=== PATIENT | male | born 1990 | race Caucasian/White ===

== ENCOUNTER 2016-06-20 12:45 | Inpatient (IN) | payer BC, OTHER ==
[2016-06-20 16:31] VITALS: BMI 30.7
--- NOTE | 2016-06-20 17:53 | HP ---
COWS - Scale Resting Pulse: 0= [place] 80 or Below Sweatin=Flushed/Facial Moisture Restless Observation: 1= Difficult to Sit Still Pupil Size: 0= Normal to Room Light Bone or Joint Aches: 2= Severe Diffuse Aches Runny Nose/ Eye Tearin= Runny Nose/Eyes GI Upset > 30mins: 2= Nausea/Diarrhea Tremor Observation: 2= Slight Tremor Visible Yawning Observation: 1= 1-2x During Session Anxiety or Irritability: 2=Irritable/Anxious Goose Flesh Skin: 3=Piloerection COWS Score: 17 Admission ROS S - HPI Chief Complaint: "I am here to Detox from the Opiates and to get better." Pt. is here to Detox from Oxycodone. Allergies/Adverse Reactions: Allergies Allergy/AdvReac Type Severity Reaction Status Date / Time No Known Allergies Allergy Verified 06/20/16 17:11 History of Present Illness: Pt. is a 26 YO male here to Detox from Oxycodone. This pt.'s first Detox admission at [facility]. Pt. also smokes Marijuana on a daily basis. Exam Limitations: No Limitations - Ebola screening Have you traveled outside of the country in the last 21 days: No Have you had contact with anyone from an Ebola affected area: No Have you been sick,other than usual withdrawal symptoms: No Do you have a fever: No - Review of Systems Constitutional: Chills, Diaphoresis, Fever, Loss of Appetite, Malaise, Night Sweats, Changes in sleep EENT: reports: Nose Congestion, Sinus Pressure Respiratory: reports: No Symptoms reported Cardiac: reports: Lightheadedness, Palpitations GI: reports: Constipated, Nausea, Poor Appetite, Vomiting, Abdominal cramping : reports: Other (Difficulty in initiaiting stream over last 2 days.) Musculoskeletal: reports: Back Pain Integumentary: reports: No Symptoms Reported Neuro: reports: Headache, Tremors Endocrine: reports: No Symptoms Reported Hematology: reports: No Symptoms Reported Psychiatric: reports: Judgement Intact, Mood/Affect Appropiate, Orientated x3, Anxious, Depressed Other Systems: Reviewed and Negative Patient History - Patient Medical History Hx Anemia: No Hx Asthma: No Hx Chronic Obstructive Pulmonary Disease (COPD): No Hx Cancer: No Hx Cardiac Disorders: No Hx Congestive Heart Failure: No Hx Hypertension: No Hx Hypercholesterolemia: No Hx Pacemaker: No HX Cerebrovascular Accident: No Hx Seizures: No Hx Dementia: No Hx Diabetes: No Hx Gastrointestinal Disorders: No Hx Liver Disease: No Hx Genitourinary Disorders: No Hx Sexually Transmitted Disorders: No Hx Renal Disease (ESRD): No Hx Thyroid Disease: No Hx Human Immunodeficiency Virus (HIV): No (Last Tested in 2011: NEGATIVE.) Hx Hepatitis C: No (Last Tested in 2012: NEGATIVE.) Hx Depression: Yes (Medication in past; none current.) Hx Suicide Attempt: No (PATIENT DENIES CURRENT SI / HI.) Hx Bipolar Disorder: No Hx Schizophrenia: No Other Medical History: 2 Herniated Discs in Lumbar Area: 2014. - Patient Surgical History Past Surgical History: Yes Hx Neurologic Surgery: No Hx Cataract Extraction: No Hx Cardiac Surgery: No Hx Lung Surgery: No Hx Breast Surgery: No Hx Breast Biopsy: No Hx Abdominal Surgery: No Hx Appendectomy: No Hx Cholecystectomy: No Hx Genitourinary Surgery: No Hx Section: No Hx Orthopedic Surgery: Yes (2007: Repair of torn Meniscus on Right Knee.) Anesthesia Reaction: No - PPD History Previous Implant?: Yes Documented Results: Negative w/o proof Implanted On Prior [facility] Admission?: No PPD to be Administered?: Yes - Reproductive History Patient is a Female of Child Bearing Age (11 -55 yrs old): No (PATIENT IS MALE.) - Smoking Cessation Smoking history: Current every day smoker Have you smoked in the past 12 months: Yes Aproximately how many cigarettes per day: 10 Cigars Per Day: 0 Hx Chewing Tobacco Use: No Initiated information on smoking cessation: Yes 'Breaking Loose' booklet given: 06/20/16 (GIVEN ON UNIT.) - Substance & Tx. History Hx Alcohol Use: No Hx Substance Use: Yes Substance Use Type: Marijuana, Opiates Hx Substance Use Treatment: No - Substances Abused Oxycontin Route: Oral Frequency: Daily Amount used: 400 mg Age of first use: 23 Date of Last Use: 06/19/16 Marijuana/Hashish Route: Smoking Frequency: 3-6 times per week Amount used: 1 Joint. Age of first use: 24 Date of Last Use: 06/19/16 Family Disease History - Family Disease History Family Disease History: [place]: Father (Lung, Brain, .), Other: Grandparent (CVA.), Mother (Depression, Bi-Polar disorder.) Admission Physical Exam [facility] - Vital Signs Vital Signs: Vital Signs - 24 hr 06/20/16 16:27 Temperature 98.9 F Pulse Rate 78 Respiratory 18 Rate Blood Pressure 122/69 - Physical General Appearance: Yes: Nourished, Appropriately Dressed, Moderate Distress, Tremorous, Anxious HEENTM: Yes: Hearing grossly Normal, Normocephalic, Normal Voice, [place], Pharynx Normal Respiratory: Yes: Chest Non-Tender, Lungs Clear, No Respiratory Distress Neck: Yes: No masses,lesions,Nodules, Supple, Trachea in good position Breast: Yes: Breast Exam Deferred Cardiology: Yes: Regular Rhythm, Regular Rate, S1, S2 Abdominal: Yes: Normal Bowel Sounds, Soft, Protuberent Genitourinary: Yes: Within Normal Limits Back: Yes: Decreased Range of Motion, Vertebral Tenderness Musculoskeletal: Yes: Gait Steady, Back pain Extremities: Yes: Normal Range of Motion, Non-Tender, Tremors Neurological: Yes: Fully Oriented, Alert, Normal Mood/Affect, Normal Response Integumentary: Yes: Normal Color, Dry, Warm Lymphatic: Yes: Within Normal Limits - Diagnostic (1) Opioid dependence with withdrawal Current Visit: Yes Status: Acute (2) Cannabis dependence, uncomplicated Current Visit: Yes Status: Acute (3) Herniated disc Current Visit: Yes Status: Chronic Qualifiers: Spinal region: lumbar Qualified Code(s): M51.26 - Other intervertebral disc displacement, lumbar region (4) Lower back injury Current Visit: Yes Status: Chronic Qualifiers: Encounter type: sequela Qualified Code(s): S39.92XS - Unspecified injury of lower back, sequela (5) Nicotine dependence Current Visit: Yes Status: Chronic Qualifiers: Nicotine product type: cigarettes Substance use status: uncomplicated Qualified Code(s): F17.210 - Nicotine dependence, cigarettes, uncomplicated Cleared for Admission [facility] - Detox or Rehab [facility] Level of Care: Medically Managed Detox Regimen/Protocol: Methadone [facility] Breath Alcohol Content Breath Alcohol Content: 0 Urine Drug Screen - Results Drug Screen Negative: No Urine Drug Screen Results: THC-Marijuana, OPI-Opiates, BZO-Benzodiazepines, OXY- Oxycodone
[2016-06-20] MEDS ORDERED: IBUPROFEN 400 MG TABLET (FP) PO PRN (18:35)
[2016-06-20] MEDS ORDERED: MAG HYDROX/AL HYDROX/SIMETH 30 ML UNIT-DOSE CUP PO PRN (18:35)
[2016-06-20] MEDS ORDERED: diphenhydrAMINE HCL 50 MG CAPSULE PO PRN (18:35)
[2016-06-20] MEDS ORDERED: MENTHOL/PHENOL 1 EACH UD MM PRN (18:35)
[2016-06-20] MEDS ORDERED: MAGNESIUM HYDROX 2400MG/30ML ORAL SUSPENSION 30 ML CUP PO PRN (18:35)
[2016-06-20] MEDS ORDERED: P-EPHED 60MG/TRIPROLIDI 2.5MG TABLET PO PRN (18:35)
[2016-06-20] MEDS ORDERED: LOPERAMIDE HCL 2 MG CAPSULE PO PRN (18:35)
[2016-06-20] MEDS ORDERED: guaiFENesin/D-METHORPHAN HB 10 ML UNIT-DOSE CUPS PO PRN (18:35)
[2016-06-20] MEDS ORDERED: MAGNESIUM CITRATE 300 ML BOTTLE PO PRN (18:35)
[2016-06-20] MEDS ORDERED: METHADONE HCL 10 MG TABLET (FOR DETOX USE ONLY) PO ONE ×2 (19:00→23:00)
[2016-06-20] MEDS: NICOTINE 21 MG/24 HOURS TOPICAL PATCH TD SCH (19:32)
[2016-06-20] MEDS: diazePAM 5 MG TABLET PO PRN ×2 (19:37→23:41)
[2016-06-20] MEDS: ACETAMINOPHEN 325 MG TABLET (FP) PO PRN (21:41)
[2016-06-20] MEDS: THIAMINE HCL 100 MG TABLET (FP) PO SCH (22:01)
[2016-06-21] MEDS: diazePAM 5 MG TABLET PO PRN ×5 (05:51→22:47)
--- NOTE | 2016-06-21 09:46 | CONSULT ---
[facility] Psychiatric Consult - Data Date of interview: 06/21/16 Admission source: [facility] Identifying data: First admission to [facility] for this 26 y/o male seeking detox treatment on for opioid and marijuana dependence.Patient is single without children,domiciled and employed. Substance Abuse History: - Smoking Cessation. Smoking history: Current every day smoker. Have you smoked in the past 12 months: Yes. Aproximately how many cigarettes per day: 10. Cigars Per Day: 0. Hx Chewing Tobacco Use: No. Initiated information on smoking cessation: Yes. 'Breaking Loose' booklet given : 06/20/16 (GIVEN ON UNIT.). - Substance & Tx. History. Hx Alcohol Use: No. Hx Substance Use: Yes. Substance Use Type: Marijuana, Opiates. Hx Substance Use Treatment: No. - Substances Abused. Oxycontin. Route: Oral. Frequency : Daily. Amount used: 400 mg. Age of first use: 23. Date of Last Use: . Marijuana/Hashish. Route: Smoking. Frequency: 3-6 times per week. Amount used: 1 Joint. Age of first use: 24. Date of Last Use: 06/19/16. Patient confirms this pattern of abuse during my interview. Medical History: Remarkable for a history of orthosurgery for torn meniscus ( right knee) an,low back pain and herniated disk (lumbar spine). Psychiatric History: No reported history of psychiatric hospitalizations.Patient indicates that he had a brief contact with a private psychiatrist,in 2007,to address depressed mood/anxiety experienced after the of his grand mother.Cymbalta was prescribed but the patient stopped taking the medication after three days.No further contact with Psychiatry since 2007.Mr Murphy denies history of suicide attempts.Chronic insomnia is a recurrent complaint. Physical/Sexual Abuse/Trauma History: Patient denies history of sexual abuse.Patient reports that the of his father has caused him a great deal of distress. Additional Comment: Urine Drug Screen Results: THC-Marijuana, OPI-Opiates, BZO- Benzodiazepines, OXY-Oxycodone.Noted. Mental Status Exam - Mental Status Exam Alert and Oriented to: Time, Place, Person Cognitive Function: Good Patient Appearance: Disheveled Mood: Nervous, Anxious, Apprehensive Affect: Mood Congruent Patient Behavior: Fatigued, Cooperative Speech Pattern: Clear Voice Loudness: Normal Thought Process: Goal Oriented Thought Disorder: Not Present Hallucinations: Denies Suicidal Ideation: Denies Homicidal Ideation: Denies Insight/Judgement: Fair Muscle strength/Tone: Normal Gait/Station: Normal Psychiatric Findings - Problem List ([place] 1, 2,3) (1) Cannabis dependence, uncomplicated Current Visit: Yes Status: Acute (2) Opioid dependence with withdrawal Current Visit: Yes Status: Acute (3) Nicotine dependence Current Visit: Yes Status: Acute Qualifiers: Nicotine product type: cigarettes Substance use status: uncomplicated Qualified Code(s): F17.210 - Nicotine dependence, cigarettes, uncomplicated (4) Substance induced mood disorder Current Visit: Yes Status: Acute (5) Herniated disc Current Visit: Yes Status: Chronic Qualifiers: Spinal region: lumbar Qualified Code(s): M51.26 - Other intervertebral disc displacement, lumbar region (6) Lower back injury Current Visit: Yes Status: Chronic Qualifiers: Encounter type: sequela Qualified Code(s): S39.92XS - Unspecified injury of lower back, sequela (7) Low back pain Current Visit: Yes Status: Chronic (8) Paronychia Current Visit: Yes Status: Chronic (9) Insomnia Current Visit: Yes Status: Chronic - Initial Treatment Plan Initial Treatment Plan: Psychoeducation.Detoxification.Zolpidem 10 mg po hs prn.Patient is made aware of the risk of parasomnias.Observation.
[2016-06-21] MEDS ORDERED: METHADONE HCL 10 MG TABLET (FOR DETOX USE ONLY) PO ONE (10:00)
[2016-06-21 10:05] LABS: MCH 28.6 pg (25.7-33.7); MCHC 32.9 g/dl (32.0-35.9); MEAN CELL VOLUME 86.9 fl (80-96); MEAN PLT VOLUME 8.5 fl (7.5-11.1); PLATELET COUNT 229 K/MM3 (134-434); RDW 14.1 % (11.9-15.9); WHITE BLOOD COUNT 5.7 K/mm3 (4.0-10.0)
[2016-06-21] MEDS: PRENATAL VITAMINS W/ FOLIC ACID TABLET (FP) PO SCH (10:07)
[2016-06-21] MEDS: NICOTINE 21 MG/24 HOURS TOPICAL PATCH TD SCH (10:08)
[2016-06-21] MEDS: ACETAMINOPHEN 325 MG TABLET (FP) PO PRN ×2 (10:09→14:51)
[2016-06-21 10:19] LABS: ALBUMIN 3.8 g/dl (3.4-5.0); ANION GAP 8 (8-16); CALCIUM 8.9 mg/dL (8.5-10.1); CO2 30 mmol/L (21-32); CREATININE 0.8 mg/dL (0.7-1.3); GLUCOSE,RANDOM 84 mg/dL (74-106); SGOT/AST 9 U/L (15-37); SGPT/ALT 12 U/L (12-78)
[2016-06-21 10:21] LABS: ALK PHOS 55 U/L (45-117); BILIRUBIN,TOTAL 1.3 mg/dL (0.2-1.0); TOT PROT 6.5 g/dl (6.4-8.2)
--- NOTE | 2016-06-21 10:47 | PN ---
[facility]HS COWS - Scale Resting Pulse: 0= [place] 80 or Below Sweatin=Flushed/Facial Moisture Restless Observation: 1= Difficult to Sit Still Pupil Size: 2= Moderately Dilated Bone or Joint Aches: 2= Severe Diffuse Aches Runny Nose/ Eye Tearin= Runny Nose/Eyes GI Upset > 30mins: 2= Nausea/Diarrhea Tremor Observation of Outstretched Hands: 1= Tremor [place], Not Seen Yawning Observation: 1= 1-2x During Session Anxiety or Irritability: 1=Feels Anxious/Irritable Goose Flesh Skin: 3=Piloerection COWS Score: 17 BHS Progress Note (SOAP) Subjective: Anxious, Interrupted sleep, nausea, body aches Objective: Laboratory Last Values WBC 5.7 K/mm3 (4.0-10.0) 06/21/16 07:40 RBC 4.87 M/mm3 (4.00-5.60) 06/21/16 07:40 Hgb 13.9 GM/dL (11.7-16.9) D 06/21/16 07:40 Hct 42.3 % (35.4-49) 06/21/16 07:40 MCV 86.9 fl (80-96) 06/21/16 07:40 MCHC 32.9 g/dl (32.0-35.9) 06/21/16 07:40 RDW 14.1 % (11.9-15.9) D 06/21/16 07:40 Plt Count 229 K/MM3 (134-434) 06/21/16 07:40 MPV 8.5 fl (7.5-11.1) 06/21/16 07:40 Sodium 143 mmol/L (136-145) 06/21/16 07:40 Potassium 4.3 mmol/L (3.5-5.1) 06/21/16 07:40 Chloride 105 mmol/L (98-107) 06/21/16 07:40 Carbon Dioxide 30 mmol/L (21-32) 06/21/16 07:40 Anion Gap 8 (8-16) 06/21/16 07:40 BUN 12 mg/dL (7-18) D 06/21/16 07:40 Creatinine 0.8 mg/dL (0.7-1.3) 06/21/16 07:40 Creat Clearance w eGFR > 60 (>60) 06/21/16 07:40 Random Glucose 84 mg/dL (74-106) 06/21/16 07:40 Calcium 8.9 mg/dL (8.5-10.1) 06/21/16 07:40 Total Bilirubin 1.3 mg/dL (0.2-1.0) H 06/21/16 07:40 AST 9 U/L (15-37) L D 06/21/16 07:40 ALT 12 U/L (12-78) D 06/21/16 07:40 Alkaline Phosphatase 55 U/L (45-117) 06/21/16 07:40 Total Protein 6.5 g/dl (6.4-8.2) 06/21/16 07:40 Albumin 3.8 g/dl (3.4-5.0) D 06/21/16 07:40 Vital Signs Period Temp Pulse Resp BP Sys/López Pulse Ox Last 24 Hr 96.2 F-98.9 F 64-78 18-18 114-132/69-95 labs and vitals noted Assessment: 06/21/16 10:46 withdrawal symptoms Plan: Discussed with patient to utlilized prn medications, verbalized understanding Continue Detox
[2016-06-21] MEDS: LIDOCAINE 5% TOPICAL PATCH TP SCH (18:25)
[2016-06-21] MEDS: NICOTINE POLACRILEX 2 MG GUM BC PRN (18:48)
[2016-06-21 20:13] LABS: URINE APPEARANCE CLEAR; URINE BILIRUBIN NEGATIVE (NEGATIVE); URINE BLOOD NEGATIVE (NEGATIVE); URINE COLOR YELLOW; URINE GLUCOSE (UA) NEGATIVE (NEGATIVE); URINE KETONE NEGATIVE (NEGATIVE); URINE LEUK ESTERASE NEGATIVE (NEGATIVE); URINE NITRITE NEGATIVE (NEGATIVE); URINE PROTEIN NEGATIVE (NEGATIVE); URINE UROBILINOGEN NEGATIVE E.U./dl (0.2-1.0)
--- NOTE | 2016-06-21 21:07 | EKG ---
Test Reason : Blood Pressure : / mmHG Vent. Rate : 084 BPM Atrial Rate : 084 BPM P-R Int : 164 ms QRS Dur : 082 ms QT Int : 378 ms P-R-T Axes : 071 081 061 degrees QTc Int : 446 ms NORMAL SINUS RHYTHM NORMAL ECG WHEN COMPARED WITH ECG OF 05-JAN-2014 11:27, NO SIGNIFICANT CHANGE WAS FOUND Confirmed by JEFFERSON SAENZ MD ([id number]) on 06/21/2016 9:07:08 PM Referred By: Confirmed By:JEFFERSON SAENZ MD
[2016-06-21] MEDS: ZOLPIDEM TARTRATE 5 MG TABLET PO PRN (22:06)
[2016-06-21] MEDS: THIAMINE HCL 100 MG TABLET (FP) PO SCH (22:06)
[2016-06-22] MEDS: diazePAM 5 MG TABLET PO PRN ×5 (06:03→23:52)
[2016-06-22] MEDS ORDERED: METHADONE HCL 5 MG TABLET (FOR DETOX USE ONLY) PO ONE (10:00)
[2016-06-22] MEDS: PRENATAL VITAMINS W/ FOLIC ACID TABLET (FP) PO SCH (10:12)
[2016-06-22] MEDS: NICOTINE 21 MG/24 HOURS TOPICAL PATCH TD SCH (10:12)
[2016-06-22] MEDS: LIDOCAINE 5% TOPICAL PATCH TP SCH (10:12)
[2016-06-22] MEDS: hydrOXYzine PAMOATE 50 MG CAPSULE (FP) PO PRN ×3 (10:13→19:46)
--- NOTE | 2016-06-22 14:39 | PN ---
BHS COWS - Scale Resting Pulse: 0= [place] 80 or Below Sweatin= Chills/Flushing Restless Observation: 3= Extraneous Movement Pupil Size: 2= Moderately Dilated Bone or Joint Aches: 1= Mild Discomfort Runny Nose/ Eye Tearin= Runny Nose/Eyes GI Upset > 30mins: 2= Nausea/Diarrhea Tremor Observation of Outstretched Hands: 2= Slight Tremor Visible Yawning Observation: 0= None Anxiety or Irritability: 2=Irritable/Anxious Goose Flesh Skin: 0=Smooth Skin COWS Score: 15 BHS Progress Note (SOAP) Subjective: Anxiety, restless, nausea, sweating, poor sleep, chills Objective: 06/22/16 14:37 Last Vital Signs Temp Pulse Resp BP Pulse Ox 96.0 F L 70 20 120/90 06/22/16 13:08 06/22/16 13:08 06/22/16 13:08 06/22/16 13:08 Laboratory Tests 06/21/16 06/21/16 06/21/16 07:40 07:40 07:40 WBC 5.7 RBC 4.87 Hgb 13.9 D Hct 42.3 MCV 86.9 MCHC 32.9 RDW 14.1 D Plt Count 229 MPV 8.5 Sodium 143 Potassium 4.3 Chloride 105 Carbon Dioxide 30 Anion Gap 8 BUN 12 D Creatinine 0.8 Creat Clearance w eGFR > 60 Random Glucose 84 Calcium 8.9 Total Bilirubin 1.3 H AST 9 L D ALT 12 D Alkaline Phosphatase 55 Total Protein 6.5 Albumin 3.8 D Urine Color Urine Appearance Urine pH Ur Specific [place] Urine Protein Urine Glucose (UA) Urine Ketones Urine Blood Urine Nitrite Urine Bilirubin Urine Urobilinogen Ur Leukocyte Esterase RPR Titer Nonreactive 06/21/16 19:50 WBC RBC Hgb Hct MCV MCHC RDW Plt Count MPV Sodium Potassium Chloride Carbon Dioxide Anion Gap BUN Creatinine Creat Clearance w eGFR Random Glucose Calcium Total Bilirubin AST ALT Alkaline Phosphatase Total Protein Albumin Urine Color Yellow Urine Appearance Clear Urine pH 6.0 Ur Specific [place] 1.020 Urine Protein Negative Urine Glucose (UA) Negative Urine Ketones Negative Urine Blood Negative Urine Nitrite Negative Urine Bilirubin Negative Urine Urobilinogen Negative Ur Leukocyte Esterase Negative RPR Titer Labs noted Assessment: 06/22/16 14:39 Withdrawal symptoms Plan: Continue detox
[2016-06-22] MEDS: ACETAMINOPHEN 325 MG TABLET (FP) PO PRN (17:18)
[2016-06-22] MEDS: NICOTINE POLACRILEX 2 MG GUM BC PRN (17:27)
[2016-06-22] MEDS: THIAMINE HCL 100 MG TABLET (FP) PO SCH (22:02)
[2016-06-22] MEDS: ZOLPIDEM TARTRATE 5 MG TABLET PO PRN (22:03)
[2016-06-23] MEDS: diazePAM 5 MG TABLET PO PRN ×3 (05:27→18:21)
[2016-06-23] MEDS: NICOTINE 21 MG/24 HOURS TOPICAL PATCH TD SCH (09:20)
[2016-06-23] MEDS: hydrOXYzine PAMOATE 50 MG CAPSULE (FP) PO PRN ×3 (09:20→22:06)
[2016-06-23] MEDS: PRENATAL VITAMINS W/ FOLIC ACID TABLET (FP) PO SCH (09:20)
[2016-06-23] MEDS: LIDOCAINE 5% TOPICAL PATCH TP SCH (09:20)
[2016-06-23] MEDS ORDERED: METHADONE HCL 5 MG TABLET (FOR DETOX USE ONLY) PO ONE (10:00)
--- NOTE | 2016-06-23 11:08 | PN ---
BHS Progress Note (SOAP) Subjective: sweating,interrupted sleep,restless Objective: 06/23/16 11:06 Vital Signs - 8 hr 06/23/16 06/23/16 06/23/16 03:27 06:03 09:40 Temperature 96.8 F L 97.6 F Pulse Rate 71 64 Respiratory 18 18 18 Rate Blood Pressure 115/84 113/76 Laboratory Tests 06/21/16 06/21/16 06/21/16 07:40 07:40 07:40 WBC 5.7 RBC 4.87 Hgb 13.9 D Hct 42.3 MCV 86.9 MCHC 32.9 RDW 14.1 D Plt Count 229 MPV 8.5 Sodium 143 Potassium 4.3 Chloride 105 Carbon Dioxide 30 Anion Gap 8 BUN 12 D Creatinine 0.8 Creat Clearance w eGFR > 60 Random Glucose 84 Calcium 8.9 Total Bilirubin 1.3 H AST 9 L D ALT 12 D Alkaline Phosphatase 55 Total Protein 6.5 Albumin 3.8 D Urine Color Urine Appearance Urine pH Ur Specific [place] Urine Protein Urine Glucose (UA) Urine Ketones Urine Blood Urine Nitrite Urine Bilirubin Urine Urobilinogen Ur Leukocyte Esterase RPR Titer Nonreactive 06/21/16 19:50 WBC RBC Hgb Hct MCV MCHC RDW Plt Count MPV Sodium Potassium Chloride Carbon Dioxide Anion Gap BUN Creatinine Creat Clearance w eGFR Random Glucose Calcium Total Bilirubin AST ALT Alkaline Phosphatase Total Protein Albumin Urine Color Yellow Urine Appearance Clear Urine pH 6.0 Ur Specific [place] 1.020 Urine Protein Negative Urine Glucose (UA) Negative Urine Ketones Negative Urine Blood Negative Urine Nitrite Negative Urine Bilirubin Negative Urine Urobilinogen Negative Ur Leukocyte Esterase Negative RPR Titer labs noted Assessment: 06/23/16 11:06 Withdrawal sx. Plan: Continue detox
[2016-06-23] MEDS: CYCLOBENZAPRINE HCL 10 MG TABLET (FP) PO SCH ×2 (13:12→22:06)
[2016-06-23] MEDS: IBUPROFEN 600 MG TABLET (FP) PO PRN (16:51)
[2016-06-23] MEDS: NICOTINE POLACRILEX 2 MG GUM BC PRN (19:11)
[2016-06-23] MEDS: ZOLPIDEM TARTRATE 5 MG TABLET PO PRN (22:00)
[2016-06-23] MEDS: THIAMINE HCL 100 MG TABLET (FP) PO SCH (22:06)
[2016-06-24] MEDS: CYCLOBENZAPRINE HCL 10 MG TABLET (FP) PO SCH ×3 (05:14→22:07)
[2016-06-24] MEDS: hydrOXYzine PAMOATE 50 MG CAPSULE (FP) PO PRN ×4 (05:15→19:13)
[2016-06-24] MEDS ORDERED: ONDANSETRON *ODT* 4 MG TABLET SL ONE (08:47)
[2016-06-24] MEDS ORDERED: ONDANSETRON *ODT* 4 MG TABLET SL PRN (08:47)
--- NOTE | 2016-06-24 09:23 | PN ---
BHS Progress Note (SOAP) Subjective: Sweating,interrupted sleep,restless. Objective: 06/24/16 09:22 Vital Signs - 8 hr 06/24/16 06/24/16 03:26 06:04 Temperature 95.9 F L Pulse Rate 65 Respiratory 18 16 Rate Blood Pressure 102/71 Laboratory Last Values WBC 5.7 K/mm3 (4.0-10.0) 06/21/16 07:40 RBC 4.87 M/mm3 (4.00-5.60) 06/21/16 07:40 Hgb 13.9 GM/dL (11.7-16.9) D 06/21/16 07:40 Hct 42.3 % (35.4-49) 06/21/16 07:40 MCV 86.9 fl (80-96) 06/21/16 07:40 MCHC 32.9 g/dl (32.0-35.9) 06/21/16 07:40 RDW 14.1 % (11.9-15.9) D 06/21/16 07:40 Plt Count 229 K/MM3 (134-434) 06/21/16 07:40 MPV 8.5 fl (7.5-11.1) 06/21/16 07:40 Sodium 143 mmol/L (136-145) 06/21/16 07:40 Potassium 4.3 mmol/L (3.5-5.1) 06/21/16 07:40 Chloride 105 mmol/L (98-107) 06/21/16 07:40 Carbon Dioxide 30 mmol/L (21-32) 06/21/16 07:40 Anion Gap 8 (8-16) 06/21/16 07:40 BUN 12 mg/dL (7-18) D 06/21/16 07:40 Creatinine 0.8 mg/dL (0.7-1.3) 06/21/16 07:40 Creat Clearance w eGFR > 60 (>60) 06/21/16 07:40 Random Glucose 84 mg/dL (74-106) 06/21/16 07:40 Calcium 8.9 mg/dL (8.5-10.1) 06/21/16 07:40 Total Bilirubin 1.3 mg/dL (0.2-1.0) H 06/21/16 07:40 AST 9 U/L (15-37) L D 06/21/16 07:40 ALT 12 U/L (12-78) D 06/21/16 07:40 Alkaline Phosphatase 55 U/L (45-117) 06/21/16 07:40 Total Protein 6.5 g/dl (6.4-8.2) 06/21/16 07:40 Albumin 3.8 g/dl (3.4-5.0) D 06/21/16 07:40 Urine Color Yellow 06/21/16 19:50 Urine Appearance Clear 06/21/16 19:50 Urine pH 6.0 (5.0-8.0) 06/21/16 19:50 Ur Specific [place] 1.020 (1.001-1.035) 06/21/16 19:50 Urine Protein Negative (NEGATIVE) 06/21/16 19:50 Urine Glucose (UA) Negative (NEGATIVE) 06/21/16 19:50 Urine Ketones Negative (NEGATIVE) 06/21/16 19:50 Urine Blood Negative (NEGATIVE) 06/21/16 19:50 Urine Nitrite Negative (NEGATIVE) 06/21/16 19:50 Urine Bilirubin Negative (NEGATIVE) 06/21/16 19:50 Urine Urobilinogen Negative E.U./dl (0.2-1.0) 06/21/16 19:50 Ur Leukocyte Esterase Negative (NEGATIVE) 06/21/16 19:50 RPR Titer Nonreactive (NONREACTIVE) 06/21/16 07:40 Hepatitis C Antibody <0.1 s/co ratio (0.0-0.9) 06/21/16 07:40 labs noted Assessment: 06/24/16 09:22 Withdrawal sx. Plan: Continue detox
[2016-06-24] MEDS ORDERED: METHADONE HCL 10 MG TABLET (FOR DETOX USE ONLY) PO ONE (10:00)
[2016-06-24] MEDS: LIDOCAINE 5% TOPICAL PATCH TP SCH (10:03)
[2016-06-24] MEDS: PRENATAL VITAMINS W/ FOLIC ACID TABLET (FP) PO SCH (10:03)
[2016-06-24] MEDS: NICOTINE 21 MG/24 HOURS TOPICAL PATCH TD SCH (10:04)
[2016-06-24] MEDS: ACETAMINOPHEN 325 MG TABLET (FP) PO PRN (10:04)
[2016-06-24] MEDS: IBUPROFEN 600 MG TABLET (FP) PO PRN ×2 (14:43→22:09)
--- NOTE | 2016-06-24 16:39 | PN ---
[facility] Progress Note Note: Psychiatry Attending's note : Approached by patient this morning. Complaint :refractory insomnia. Patient requested seroquel. Discussed with the patient : .indications of seroquel, .side effects/benefits. .dosage Mr Murphy is made aware of metabolic syndrome. Also informed of risk of oversedation,falls. Risk of abnormal involuntary movements revisited. Patient insists on a trial of seroquel. Plan : seroquel 50 mg po hs.Ordered. Will follow response and tolerability.
[2016-06-24] MEDS: NICOTINE POLACRILEX 2 MG GUM BC PRN (17:52)
[2016-06-24] MEDS ORDERED: ZOLPIDEM TARTRATE 10 MG TABLET (PARK CARE ONLY) PO PRN (22:00)
[2016-06-24] MEDS ORDERED: QUEtiapine FUMARATE 50 MG TABLET PO SCH (22:00)
[2016-06-24 22:05] VITALS: PULSE 76
[2016-06-24] MEDS: THIAMINE HCL 100 MG TABLET (FP) PO SCH (22:07)
[2016-06-25] MEDS: CYCLOBENZAPRINE HCL 10 MG TABLET (FP) PO SCH (05:31)
[2016-06-25] MEDS: hydrOXYzine PAMOATE 50 MG CAPSULE (FP) PO PRN (05:33)
[2016-06-25] MEDS: ACETAMINOPHEN 325 MG TABLET (FP) PO PRN (05:33)
[2016-06-25 05:59] VITALS: BP 112/74; TEMP 96.1
[2016-06-25] MEDS ORDERED: METHADONE HCL 5 MG TABLET (FOR DETOX USE ONLY) PO ONE (06:00)
[2016-06-25] MEDS ORDERED: hydrOXYzine PAMOATE 50 MG CAPSULE (FP) PO ONE (09:07)
--- NOTE | 2016-06-25 16:46 | DS ---
[facility] Detox Discharge Summary Admission Date: 06/20/16 Discharge Date: 06/25/16 - History Present History: Cannabis Dependence, Opioid Dependence Pertinent Past History: insomnia - Physical Exam Results Vital Signs: Vital Signs Temperature 96.1 F L 06/25/16 05:59 Pulse Rate 76 06/25/16 05:59 Respiratory Rate 16 06/25/16 05:59 Blood Pressure 112/74 06/25/16 05:59 O2 Sat by Pulse Oximetry (%) Pertinent Admission Physical Exam Findings: withdrawal sx. Laboratory Last Values WBC 5.7 K/mm3 (4.0-10.0) 06/21/16 07:40 RBC 4.87 M/mm3 (4.00-5.60) 06/21/16 07:40 Hgb 13.9 GM/dL (11.7-16.9) D 06/21/16 07:40 Hct 42.3 % (35.4-49) 06/21/16 07:40 MCV 86.9 fl (80-96) 06/21/16 07:40 MCHC 32.9 g/dl (32.0-35.9) 06/21/16 07:40 RDW 14.1 % (11.9-15.9) D 06/21/16 07:40 Plt Count 229 K/MM3 (134-434) 06/21/16 07:40 MPV 8.5 fl (7.5-11.1) 06/21/16 07:40 Sodium 143 mmol/L (136-145) 06/21/16 07:40 Potassium 4.3 mmol/L (3.5-5.1) 06/21/16 07:40 Chloride 105 mmol/L (98-107) 06/21/16 07:40 Carbon Dioxide 30 mmol/L (21-32) 06/21/16 07:40 Anion Gap 8 (8-16) 06/21/16 07:40 BUN 12 mg/dL (7-18) D 06/21/16 07:40 Creatinine 0.8 mg/dL (0.7-1.3) 06/21/16 07:40 Creat Clearance w eGFR > 60 (>60) 06/21/16 07:40 Random Glucose 84 mg/dL (74-106) 06/21/16 07:40 Calcium 8.9 mg/dL (8.5-10.1) 06/21/16 07:40 Total Bilirubin 1.3 mg/dL (0.2-1.0) H 06/21/16 07:40 AST 9 U/L (15-37) L D 06/21/16 07:40 ALT 12 U/L (12-78) D 06/21/16 07:40 Alkaline Phosphatase 55 U/L (45-117) 06/21/16 07:40 Total Protein 6.5 g/dl (6.4-8.2) 06/21/16 07:40 Albumin 3.8 g/dl (3.4-5.0) D 06/21/16 07:40 Urine Color Yellow 06/21/16 19:50 Urine Appearance Clear 06/21/16 19:50 Urine pH 6.0 (5.0-8.0) 06/21/16 19:50 Ur Specific [place] 1.020 (1.001-1.035) 06/21/16 19:50 Urine Protein Negative (NEGATIVE) 06/21/16 19:50 Urine Glucose (UA) Negative (NEGATIVE) 06/21/16 19:50 Urine Ketones Negative (NEGATIVE) 06/21/16 19:50 Urine Blood Negative (NEGATIVE) 06/21/16 19:50 Urine Nitrite Negative (NEGATIVE) 06/21/16 19:50 Urine Bilirubin Negative (NEGATIVE) 06/21/16 19:50 Urine Urobilinogen Negative E.U./dl (0.2-1.0) 06/21/16 19:50 Ur Leukocyte Esterase Negative (NEGATIVE) 06/21/16 19:50 RPR Titer Nonreactive (NONREACTIVE) 06/21/16 07:40 Hepatitis C Antibody <0.1 s/co ratio (0.0-0.9) 06/21/16 07:40 labs noted - Treatment Hospital Course: Detox Protocol Followed, Detoxed Safely, Responded well, Discharged Condition Good, Rehab Referral Accepted Patient has Accepted a Rehab Referral [facility] - Medication Discharge Medications: Ambulatory Orders NK [No Known Home Medication] 06/20/16 - Diagnosis (1) Cannabis dependence, uncomplicated Status: Acute (2) Nicotine dependence Status: Acute Qualifiers: Nicotine product type: cigarettes Substance use status: uncomplicated Qualified Code(s): F17.210 - Nicotine dependence, cigarettes, uncomplicated (3) Opioid dependence with withdrawal Status: Acute (4) Substance induced mood disorder Status: Acute (5) Insomnia Status: Chronic - AMA Did Patient Leave Against Medical Advice: No
== END 2016-06-25 09:27 | disposition home or self-care (01) | DRG 745 ==
LOC: YASAS 12:45 → Y3N 17:57
PROVIDERS: ADMIT Internal Medicine; ATTEND Internal Medicine
PROC: HZ2ZZZZ Detoxification Services for Substance Abuse Treatment (ICD-10-PCS; principal; 2016-06-25)
DX: F11.23 Opioid dependence with withdrawal (principal); F12.20 Cannabis dependence, uncomplicated; F17.210 Nicotine dependence, cigarettes, uncomplicated; F19.24 Other psychoactive substance dependence with psychoactive substance-induced mood disorder; G47.00 Insomnia, unspecified; M51.26 Other intervertebral disc displacement, lumbar region; M54.5 Low back pain
CPT/HCPCS: 36415; 80053; 81003; 85027; 86593; 93005; 93010

== ENCOUNTER 2021-01-30 11:10 | Emergency (ER) | payer OTHER ==
[2021-01-30 11:24] VITALS: BP 126/76; PULSE 80; TEMP 98.4; BMI 32.5
[2021-01-30] MEDS ORDERED: LIDOCAINE 5% TOPICAL PATCH TP ONE (12:25)
[2021-01-30] MEDS ORDERED: IBUPROFEN 600 MG TABLET (FP) PO ONE ×2 (12:25→12:26)
[2021-01-30] MEDS ORDERED: LIDOCAINE 5% TOPICAL PATCH ONE (12:26)
== END 2021-01-30 12:52 | disposition home or self-care (01) ==
LOC: JERFT 11:10
DX: M54.50 Low back pain, unspecified (principal); X50.0XXA Overexertion from strenuous movement or load, initial encounter
CPT/HCPCS: 72100-TC-FY; 99283-25